=== PATIENT | male | born 1985 | race Caucasian/White ===

== ENCOUNTER → 2017-01-08 | Outpatient (CLI) | payer OTHER ==
--- NOTE | 2017-01-08 14:43 | MRI ---
STUDY: MRI OF THE BRAIN WITHOUT GADOLINIUM History: Dizziness, blurred vision, anxiety attacks. Comparison: None. Technique: Multiplanar multi-sequence MRI of the brain was obtained utilizing standard departmental protocol. Sagittal and axial T1, axial T2, FLAIR, diffusion (DWI/ADC) images through the brain were performed. Findings: The sulci, cisterns, and ventricles are age appropriate. There is no evidence of acute ter ritorial infarction, hemorrhage, mass, mass effect or midline shift. There are no abnormal intra-axi al or extra-axial fluid collections. The major intracranial vascular flow voids are intact. There is mucosal thickening in both maxillary sinuses. IMPRESSION: 1. No evidence of acute intracranial abnormality. Reported By:
== END ==
LOC: RAD 13:07
PROVIDERS: ATTEND Nurse Practitioner Family
DX: R42 Dizziness and giddiness (principal); G47.33 Obstructive sleep apnea (adult) (pediatric)
CPT/HCPCS: 70551; 95819